=== PATIENT | female | born 1990 ===

== ENCOUNTER 2021-07-29 09:35 | Outpatient (CLI) | payer OTHER ==
[~2021-07-29 09:35] MED LIST: CODE1TAB37 PO
== END 2021-07-29 10:35 | disposition home or self-care (01) ==
LOC: PRENATAL 09:35
PROVIDERS: ATTEND Obstetrics & Gynecology Maternal & Fetal Medicine
DX: O35.0XX1 Maternal care for (suspected) central nervous system malformation in fetus, fetus 1 (principal); O35.3XX1 Maternal care for (suspected) damage to fetus from viral disease in mother, fetus 1; O98.512 Other viral diseases complicating pregnancy, second trimester; O26.872 Cervical shortening, second trimester; O26.852 Spotting complicating pregnancy, second trimester; Z36.89 Encounter for other specified antenatal screening; Z3A.25 25 weeks gestation of pregnancy

== ENCOUNTER 2021-11-16 18:25 | Inpatient (IN) | payer OTHER ==
[~2021-11-16] VITALS: Ht 172.7 cm; Wt 101.2 kg
[2021-11-16] MEDS ORDERED: PRENATAL TABLE1 EAC1 PO (19:11)
== END 2021-11-19 11:36 | disposition home or self-care (01) | DRG 807 ==
LOC: LDR 18:25 → OB/GYN 18:25
PROVIDERS: ADMIT Student in an Organized Health Care Education/Training Program; ATTEND Student in an Organized Health Care Education/Training Program
PROC: 3E0P7VZ Introduction of Hormone into Female Reproductive, Via Natural or Artificial Opening (ICD-10-PCS; 2021-11-16)
PROC: 4A1HXFZ Monitoring of Products of Conception, Cardiac Rhythm, External Approach (ICD-10-PCS; 2021-11-16)
PROC: 10E0XZZ Delivery of Products of Conception, External Approach (ICD-10-PCS; principal; 2021-11-17)
PROC: 0KQM0ZZ Repair Perineum Muscle, Open Approach (ICD-10-PCS; 2021-11-17)
PROC: 10907ZC Drainage of Amniotic Fluid, Therapeutic from Products of Conception, Via Natural or Artificial Opening (ICD-10-PCS; 2021-11-17)
DX: O70.1 Second degree perineal laceration during delivery (principal); Z37.0 Single live birth; Z3A.40 40 weeks gestation of pregnancy; Z86.16 Personal history of COVID-19